=== PATIENT | male | born 1955 | race African-American/Black ===

== ENCOUNTER → 2018-05-05 | Day surgery (SDC) | payer OTHER ==
[~2018-05-05] MED LIST: AMLODIPINE BESY10 MG PO; COMBIGAN EYE DRO5 ML OP; COQ-10100 MG PO; CRESTOR10 MG PO; FISH OIL PO; GLIPIZIDE ER5 MG PO; INVOKANA PO; KETAMINE HCL INJ 50 MG/ML 10 ML VIAL ONE; LIDOCAINE HCL 2% LOCAL INJ 5 ML SDV VIAL INJ ONE; LOSARTAN POTASS25 MG PO; MEN'S MULTI-VI1 EACH PO; MIDAZOLAM HCL 2 MG/2 ML VIAL ONE; PIOGLITAZONE HC45 MG PO; PROBIOTIC & AC1 EACH PO; PROPOFOL IV EMULSION 10 MG/ML 20 ML VIAL ONE; TRAVATAN Z5 ML OP; VIT D2 PO; VIT E PO; WELCHOL625 MG PO
--- NOTE | 2018-05-05 09:10 | Operative Report ---
DATE OF PROCEDURE: NAME OF THE PROCEDURE: Colonoscopy. PREPROCEDURE DIAGNOSES: Patient with history of colon polyps, family history of colon cancer, here for surveillance colonoscopy. DESCRIPTION OF PROCEDURE: After informed written consent, premedication with monitored anesthesia care, standard adult video Olympus colonoscope was introduced into the rectum and all the way into the cecum. Prep was good. The colon showed occasional diverticulosis in the area of the ascending colon and descending colon and very minimal. The rest of the colon was completely normal. The cecum, ascending, transverse, descending, sigmoid, rectum did not show any polyps. Retroflexion did not show any significant hemorrhoids. IMPRESSION: Diverticulosis. RECOMMENDATION: Colonoscopy in 5 years, followup in the office as needed. Patient to resume all medications. Further recommendations will be based on patient's clinical course. Job#: [id number]
== END | disposition home or self-care (01) ==
LOC: OR 06:26
PROVIDERS: ATTEND Internal Medicine Gastroenterology
DX: Z09 Encounter for follow-up examination after completed treatment for conditions other than malignant neoplasm (principal); K57.30 Diverticulosis of large intestine without perforation or abscess without bleeding; E11.9 Type 2 diabetes mellitus without complications; I10 Essential (primary) hypertension; K76.0 Fatty (change of) liver, not elsewhere classified; G47.33 Obstructive sleep apnea (adult) (pediatric); E66.01 Morbid (severe) obesity due to excess calories; Z01.810 Encounter for preprocedural cardiovascular examination; Z79.84 Long term (current) use of oral hypoglycemic drugs; Z68.42 Body mass index [BMI] 45.0-49.9, adult; Z86.19 Personal history of other infectious and parasitic diseases; Z80.0 Family history of malignant neoplasm of digestive organs
CPT/HCPCS: 36415; 45378; 82948; 93005; J2001; J2250